=== PATIENT | female | born 1960 ===

== ENCOUNTER 2019-05-12 08:56 | Day surgery (SDC) | payer OTHER ==
[~2019-05-12 08:56] MED LIST: PROPOFOL 200 MG/20 ML VIAL IV ONE; SODIUM CHLORIDE 0.9% 1000 ML 1,000 ML IV SCH
[2019-05-12] MEDS ORDERED: LIDOCAINE MPF (2%) 20 MG/1 ML VIAL 5 ML ONE (10:00)
--- NOTE | 2019-05-12 10:09 | Anesthesia Day of Surgery ---
Anesthesia Day of Surgery - Day of Surgery Patient Examined: Yes Patient H&P Reviewed: Yes Patient is NPO: Yes Beta Blockers: No Cardiac Clearance: No Pulmonary Clearance: No Frank's Test: N/A
--- NOTE | 2019-05-12 10:12 | Anesthesia Consultation ---
Anesthesia Consult and Med Hx - Airway Anesthetic Teeth Evaluation: Good ROM Head & Neck: Adequate Mental/Hyoid Distance: Adequate Mallampati Class: Class II Intubation Access Assessment: Probably Good - Pulmonary Exam CTA: Yes - Cardiac Exam Cardiac Exam: RRR - Pre-Operative Health Status ASA Pre-Surgery Classification: ASA1 Proposed Anesthetic Plan: General, MAC - Pulmonary Hx Smoking: No Hx Asthma: No Hx Respiratory Symptoms: No (No resp Dx) - Cardiovascular System Hx Hypertension: No (No Cardiac dx) - Central Nervous System Hx Neuromuscular Disorder: No - Gastrointestinal Hx Ulcer: No - Endocrine Hx Renal Disease: No - Hematic Hx Anemia: No
--- NOTE | 2019-05-12 10:33 | Short Stay Summary ---
Short Stay Documentation Date of service: 05/12/19 Narrative H&P: The patient presents for her first screening colonoscopy. Average risks. - History Past Medical History: No medical history Past Surgical History: No surgical history Social history: no significant social history, , lives with family - Allergies and Medications Current Medications: Allergies No Known Allergies Allergy (Verified 05/12/19 07:10) Home Medications Medication Instructions Recorded Confirmed Last Taken Type No Known Home Medications [No 05/12/19 05/12/19 Unknown History Reported Home Medications] Active Medications Sodium Chloride (Nacl 0.9% 1000 Ml) 1,000 mls @ 50 mls/hr IV DIRECT ARNOLD Last Admin: 05/12/19 09:50 Dose: 50 mls/hr Documented by: - Physical exam General appearance: no acute distress, well-nourished Integumentary: no rash, no growths, no abnormal pigmentation HEENT: Atraumatic, PERRLA, EOMI, Mucous membr. moist/pink Lungs: Clear to auscultation, Normal air movement Breasts: deferred Heart: Regular rate, Normal S1, Normal S2, No murmurs Gastrointestinal: normoactive bowel sounds, no tenderness, no distended, no masses, no guarding Female Genitourinary: deferred Rectal Exam: normal exam-external/orifice, no mass Extremities: no ischemia, pulses intact, pulses symmetrical, No edema, normal temperature, normal color, Full ROM Neurological: Normal gait, Normal speech, Strength at 5/5 X4 ext, Normal tone, Sensation intact, Cranial nerves 3-12 NL - Brief post op/procedure progress note Date of procedure: 05/12/19 Procedure: see dictation Estimated blood loss: none Pathology: none Condition: stable - Disposition Condition at discharge: Good Disposition: DC-01 TO HOME OR SELFCARE - Discharge Diagnoses (1) Colon cancer screening Status: Acute Short Stay Discharge Plan Activity: other (no driving for 24 hours) Weight Bearing Status: Full Weight Bearing Diet: regular Follow up with: TANYA MENDEZ MD [Primary Care Provider] - 7 Days
--- NOTE | 2019-05-12 10:35 | Operative Report ---
Operative Report Operative Report: Date of procedure: 05/12/2019 Preprocedure diagnosis: Colon cancer screening, average risk. No prior studies. Post procedure diagnosis: Moderate left colon diverticulosis Procedure: Colonoscopy to the cecum Endoscopist: Dr. Berger Anesthesia: Monitored anesthesia care per anesthesia department Estimated blood loss: 0 Medications: Monitored anesthesia care. See separate report by anesthesia for details. After careful discussion of the nature and purpose of the procedure as well as details of the technique risks benefits and alternatives the patient gave consent. Please see recent history and physical from the office. The patient was placed in the left lateral decubitus position and medicated per anesthesia. A rectal exam was performed sphincter tone was normal there were no masses palpable. The Olympus colonoscope was passed transanally and advanced under continuous direct vision without difficulty to the cecum. The colon was well prepared. The cecum was normal. The ascending colon revealed a few diverticula but otherwise was normal and on forward and retroflexed views. The transverse colon was normal. There were scattered diverticula in the descending and sigmoid colon. The rectum was normal on forward and retroflexed views. The procedure was well-tolerated overall and the patient was observed in recovery. Conclusions: Moderate diverticulosis of the left colon and mild right-sided diverticulosis. Plan: Repeat colonoscopy in 10 years, sooner if clinically indicated. Signed electronically: Ashok Berger M.D.
[2019-05-12 11:11] VITALS: BP 125/70
--- NOTE | 2019-05-12 23:24 | Post Anesthesia Evaluation ---
- Post Anesthesia Evaluation Patient Participated: Yes Airway Patent: Yes Stable Respiratory Function: Yes Nausea/Vomiting: No Temp > 96.8F: Yes Pain Manageable: Yes Adequeate Hydration: Yes Anesthesia Complications: No Block Receding Appropriately: Not Applicable Patient on Ventilator: No
== END 2019-05-12 08:57 | disposition home or self-care (01) ==
LOC: GIO 08:56
PROVIDERS: ATTEND Internal Medicine Gastroenterology
DX: Z12.11 Encounter for screening for malignant neoplasm of colon (principal); K57.30 Diverticulosis of large intestine without perforation or abscess without bleeding; I10 Essential (primary) hypertension; Z98.890 Other specified postprocedural states; Z79.899 Other long term (current) drug therapy
CPT/HCPCS: 45378; J2704; J7030